=== PATIENT | female | born 1950 | race Caucasian/White ===

== ENCOUNTER 2019-02-02 16:51 | Emergency (ER) | payer OTHER ==
[~2019-02-02] VITALS: Ht 167.6 cm; Wt 65.3 kg
[~2019-02-02 16:51] MED LIST: EVISTA; NORCO 5-325 TA1 EACH PO
[2019-02-02] MEDS ORDERED: CENTANY30 GM TOP (17:23)
[2019-02-02 17:39] VITALS: BP 124/54
== END 2019-02-02 17:40 | disposition home or self-care (01) ==
LOC: M.ERS 16:51
DX: S61.211A Laceration without foreign body of left index finger without damage to nail, initial encounter (principal); K21.9 Gastro-esophageal reflux disease without esophagitis; Z88.5 Allergy status to narcotic agent; W26.8XXA Contact with other sharp object(s), not elsewhere classified, initial encounter; Y93.E9 Activity, other interior property and clothing maintenance; Y92.89 Other specified places as the place of occurrence of the external cause; Y99.8 Other external cause status